=== PATIENT | female | born 1990 | race Caucasian/White ===

== ENCOUNTER 2017-08-30 04:29 | Emergency (ER) | payer SELFPAY ==
[~2017-08-30] VITALS: Ht 160 cm; Wt 72.6 kg
[2017-08-30 04:42] VITALS: BP_SYST 112
[2017-08-30] MEDS ORDERED: DIVA250T34 PO (04:54)
[2017-08-30] MEDS ORDERED: DIVALPROEX SODIUM 250 MG TABLET(DEPAKOTE) PO ONE (05:00)
[2017-08-30 05:21] VITALS: BP_SYST 112
== END 2017-08-30 05:21 ==
LOC: SED 04:29
DX: Z02.89 Encounter for other administrative examinations (principal); Z86.19 Personal history of other infectious and parasitic diseases
CPT/HCPCS: 99283